=== PATIENT | female | born 1995 | race Caucasian/White ===

== ENCOUNTER 2022-10-29 16:23 | Emergency (ER) | payer OTHER ==
[~2022-10-29] VITALS: Ht 162.6 cm; Wt 51.7 kg
--- NOTE | 2022-10-29 17:25 | NUR ---
at bedside for eval
--- NOTE | 2022-10-29 17:26 | NUR ---
pt states that she cut between her left toe falling down the stairs. cut is clean and well aproximated. no pain unless wound is probed and openned.
[2022-10-29] MEDS ORDERED: TDAP [DIPH/PERTUSSIS/TET] 0.5 ML VIAL IM ONE ×2 (17:30→17:35)
[2022-10-29] MEDS ORDERED: CEPH500C2 PO (19:15)
[2022-10-29] MEDS ORDERED: IBUP-1953 PO (19:15)
[2022-10-29 19:26] VITALS: BP 124/83
== END 2022-10-29 19:46 | disposition home or self-care (01) ==
LOC: ER 16:25
DX: S91.312A Laceration without foreign body, left foot, initial encounter (principal); W01.0XXA Fall on same level from slipping, tripping and stumbling without subsequent striking against object, initial encounter; Y93.89 Activity, other specified; Y92.89 Other specified places as the place of occurrence of the external cause; Y99.8 Other external cause status
CPT/HCPCS: 73630-TC; 90715